=== PATIENT | male | born 1995 | race Caucasian/White ===

== ENCOUNTER 2024-11-21 14:37 | Emergency (ER) | payer MEDICARE ==
[~2024-11-21] VITALS: Ht 177.8 cm; Wt 72.0 kg
[~2024-11-21 14:37] MED LIST: dextrose 50%-water 50ml dispensing syringe IV ONE; epiNEPHrine 0.1mg/ml 10ml syringe ONE; sod chloride 0.9% 10ml flush syringe IV ONE; sodium bicarbonate (8.4%) 1 mEq/ml syringe ONE
[2024-11-21] MEDS: sodium bicarbonate (8.4%) inj. 150 MEQ in sodium chloride 0.45% 1,000 ML IV SCH (14:43)
--- NOTE | 2024-11-21 14:53 | ELECTROCARDIOGRAPH REPORT ---
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
[2024-11-21 15:07] VITALS: BP 126/79; PULSE 118; RESP 20; O2SAT 98
[2024-11-21 15:07] LABS: MEAN PLATELET VOLUME 9.6 FL (7.4-10.4); RED CELL DISTRIBUTION WIDTH 15.1 % (11.5-14.5)
[2024-11-21] MEDS: CefTRIAXone 2gm/D5W 50ml BAG 50 ML IV ONE (15:08)
[2024-11-21] MEDS: ringers solution, lactated 1000ml IV soln IV ONE (15:09)
[2024-11-21] MEDS: FENTANYL-0.9 % NACL/PF 100 ML IV SCH (15:09)
[2024-11-21] MEDS: propofol 1000mg/100ml bottle 100 ML IV SCH (15:10)
--- NOTE | 2024-11-21 15:17 | RADIOLOGY REPORT ---
EXAM: DI CHEST,SINGLE VIEW Indication: SEPSIS, POST ETT Technique: Single frontal view of the chest was obtained Comparison: None FINDINGS: Lines and Tubes: Endotracheal tube projects 5 cm above the mley. Enteric tube tip projects over expected region stomach. Lungs: Diffuse interstitial opacities. Pleura: No effusion. No pneumothorax. Cardiomediastinal contours: Unremarkable Bones: No acute osseous abnormality. IMPRESSION: Diffuse interstitial opacities suggestive of atypical infection or pulmonary edema.
[2024-11-21] MEDS ORDERED: sodium bicarbonate (8.4%) inj. 150 MEQ in sodium chloride 0.45% 850 ML IV SCH (15:20)
[2024-11-21 15:29] LABS: CREATININE 3.02 MG/DL (0.60-1.10); PRO BRAIN NATRIURETIC PEPTIDE 980 PG/ML (0-125); eCRCL 37 ML/MIN; eGFR 25 ML/MIN
[2024-11-21] MEDS: sodium bicarbonate (8.4%) 1 mEq/ml syringe IV ONE ×2 (15:40→17:52)
[2024-11-21 15:43] LABS: TOTAL CARBON DIOXIDE 13.8 MMOL/L (24-32)
[2024-11-21] MEDS: ringers solution, lacted 1,000 ML IV ONE (15:45)
[2024-11-21] MEDS: midazolam 100mg in NS 100ml 100 ML IV SCH (16:06)
[2024-11-21 16:45] VITALS: BP 128/105; PULSE 139; RESP 23; O2SAT 99
[2024-11-21 17:17] VITALS: O2SAT 96
[2024-11-21 17:29] VITALS: BP_DIAS 69; PULSE 146; TEMP 93.4
[2024-11-21 17:50] VITALS: BP_SYST 32
[2024-11-21] MEDS: VASOPRESSIN 20 UNITS/NS 100mL 100 ML IV SCH (17:50)
[2024-11-21] MEDS: COMMUNICATION ORDER 1 EA MISC MC ONE (17:50)
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
[2024-11-21 18:56] VITALS: RESP 16
[2024-11-21] MEDS: morphine 4 MG/ML inj SYRINge IV ONE (18:56)
[2024-11-22 09:11] LABS: ALLEN'S TEST POSITIVE
[2024-11-22 09:12] LABS: FIO2 100.0 mmHg/%; PATIENT TEMPERATURE 37.0
[2024-11-22 09:13] LABS: ABG PCO2 (T) 59.0 mmHg (35.0-48.0); ABG PH (T) < 6.670 (7.350-7.450); ABG PO2 (T) 426.6 mmHg (83.0-108.0)
[2024-11-22 09:16] LABS: FCOHb 0.3 % (0.5-1.5); FHHb 0.6 % (0.0-5.0); FMetHb 0.5 % (0.0-1.5); FO2Hb 98.6 % (94.0-98.0); TOTAL HEMOGLOBIN 15.9 G/dl (13.5-17.5)
[2024-11-22 09:17] LABS: ABG OXYGEN SATURATION 99.4 % (94.0-98.0)
== END 2024-11-22 01:30 ==
LOC: ER 14:37
DX: I46.9 Cardiac arrest, cause unspecified (principal); R06.02 Shortness of breath; E16.2 Hypoglycemia, unspecified; E87.20 Acidosis, unspecified; J45.909 Unspecified asthma, uncomplicated; Z79.899 Other long term (current) drug therapy
CPT/HCPCS: 36415; 36600; 71045; 80053; 82803; 82948; 83605; 83735; 83880; 84145; 84484; 85018; 85025; 87040; 87070; 92950; 93005; 96365; 96366; 96368; 96375; 99291; 99292; J0169; J0696; J2270; J2704; J3010; J3490; J7040; J7120; Z7610; 94002; 94760